=== PATIENT | female | born 1950 | race Caucasian/White ===

== ENCOUNTER 2017-10-10 06:25 | Day surgery (SDC) | payer MEDICARE, BC ==
[~2017-10-10 06:25] MED LIST: Buffered Lidocaine 0.9% SYRIN* 5 ML/SYR SYRINGE INTRADERM ONE; Metoclopramide TAB* 10 MG PO ONE
[2017-10-10] MEDS ORDERED: Buffered Lidocaine 0.9% SYRIN* 5 ML/SYR SYRINGE ONE (06:44)
[2017-10-10] MEDS ORDERED: ceFAZolin 2 GM PREMIX (*) 2 GM/50 ML BAG IVPB ONE (06:44)
[2017-10-10] MEDS ORDERED: Metoclopramide TAB* 10 MG ONE (06:44)
[2017-10-10] MEDS ORDERED: Lidocaine 1% INJ* 10 MG/ML 30 ML SDV ONE (07:06)
[2017-10-10] MEDS ORDERED: Ondansetron INJ* 2 MG/ML VIAL ONE (07:22)
[2017-10-10] MEDS ORDERED: KETAMINE HCL* 50 MG/ML 10 ML VIAL ONE (07:22)
[2017-10-10] MEDS ORDERED: Propofol* 10 MG/ML 20 ML BTL IV PUSH ONE (07:22)
[2017-10-10] MEDS ORDERED: Dexamethasone IV* 4 MG/ML 1 ML (4 MG) ONE (07:22)
[2017-10-10] MEDS ORDERED: fentaNYL* 50 MCG/ML 2 ML VIAL (100 MCG VIAL) ONE (07:22)
[2017-10-10] MEDS ORDERED: Ketorolac INJ* 30 MG/ML 1 ML VIAL ONE (07:22)
[2017-10-10] MEDS ORDERED: Lidocaine 2% PF * 5 ML VIAL ONE (07:22)
[2017-10-10] MEDS ORDERED: Midazolam* 1 MG/ML 10 ML VIAL (10 MG) ONE (07:22)
[2017-10-10] MEDS ORDERED: oxyCODONE/Acetamin 5/325 MG* TAB PO PRN (08:01)
[2017-10-10] MEDS ORDERED: fentaNYL* 50 MCG/ML 2 ML VIAL (100 MCG VIAL) IV PRN (08:01)
[2017-10-10] MEDS ORDERED: Naloxone* 0.4 MG/ML 1 ML VIAL IV PRN (08:01)
[2017-10-10] MEDS ORDERED: Ondansetron INJ* 2 MG/ML VIAL IV PRN (08:01)
--- NOTE | 2017-10-10 09:09 | BRIEFOPN ---
Brief Operative Note - Surgery Procedures: Procedures OPERATIVE REPORT PRE-OP: Metastatic lung cancer POST-OP: Same PROCEDURE: Insertion of left subclavian percutaneous 8F PowerPort with needle in SURGEON: MD Monica ANESTHESIA:Local with MAC Dr. Gaxiola ASST: none IVF:min EBL:min SPECIMEN: none DRAIN: none WOUND CLASS:One COMPLICATIONS: none TO PACU--Post procedural chest xray with catheter in good position with no pneumothorax.
--- NOTE | 2017-10-10 09:12 | RAD ---
HISTORY: Status post port placement COMPARISONS: PET CT dated September 29, 2012 VIEWS: 1: frontal portable view of the chest at 8:50 AM FINDINGS: LINES AND TUBES: A chest port is noted from left subclavian approach with the tip overlying the cavoatrial junction. CARDIOMEDIASTINAL SILHOUETTE: The cardiomediastinal silhouette is normal for portable technique. PLEURA: The costophrenic angles are sharp. No pleural abnormalities are noted. There is no appreciable pneumothorax. LUNG PARENCHYMA: Again noted is nodularity of the lateral right lung field with an ill-defined soft tissue density in the paramedian sella region of the right upper lung corresponding to the mass noted on previous CT. Accounting for differences in technique, this is stable. ABDOMEN: The upper abdomen is clear. There is no subphrenic gas. BONES AND SOFT TISSUES: No bone or soft tissue abnormalities are noted. IMPRESSION: 1. LINES AND TUBES ABOVE. 2. NO APPRECIABLE PNEUMOTHORAX. 3. STABLE RIGHT LUNG MASS OR NODULES
--- NOTE | 2017-10-10 09:29 | RAD ---
INDICATION: PowerPort placement. COMPARISON: No relevant prior exams available on the [facility] for comparison. TECHNIQUE: 66.7 seconds fluoroscopy. FINDINGS: Spot images document a LEFT side chest port with the tip at level of the RIGHT atrium. IMPRESSION: Procedural fluoroscopy. CPT II Codes: 6045F
[2017-10-10 10:10] VITALS: BP 139/60
--- NOTE | 2017-10-10 10:14 | RAD ---
HISTORY: Right calf swelling, lung cancer COMPARISONS: None relevant TECHNIQUE: Multiple transverse and longitudinal ultrasound images were obtained of the right lower extremity from the level of the common femoral vein inferiorly through to the infrapopliteal veins using grayscale, color Doppler, and spectral Doppler imaging with and without compression and with augmentation. Comparison images were obtained of the contralateral common femoral vein. FINDINGS: VEINS: There is occlusive thrombus noted within the right femoral vein, within the profunda femoris, within the right popliteal vein, and in the right posterior tibial and peroneal veins. The remainder of the venous system of the right lower extremity is compressible throughout its course, with normal flow on color Doppler imaging and normal response to augmentation on spectral Doppler imaging. SOFT TISSUES: Unremarkable. OTHER FINDINGS: None. IMPRESSION: EXTENSIVE OCCLUSIVE THROMBUS OF THE RIGHT LOWER EXTREMITY.
--- NOTE | 2017-10-11 18:26 | OP ---
CC: SAMANTHA Ross * DATE OF OPERATION: 10/10/17 - [facility] DATE OF : 54 SURGEON: Aadlid Anderson MD. OPERATIONS ENGINEER: None. ANESTHESIOLOGIST: Dr. Gaxiola. ANESTHESIA: Local, monitored anesthesia care. PRE-OP DIAGNOSIS: Metastatic lung cancer. POST-OP DIAGNOSIS: Metastatic lung cancer. OPERATIVE PROCEDURE: Insertion of an 8-Cypriot PowerPort percutaneously in the left subclavian vein, needle in. ESTIMATED BLOOD LOSS: Minimal. WOUND CLASSIFICATION: I. COMPLICATIONS: None. SPECIMENS: None. DESCRIPTION OF PROCEDURE: Written informed consent was obtained, the left chest was marked with indelible ink and preoperative antibiotics were administered. The left and right chest and neck were prepped and draped in the usual sterile fashion. Time-out verification was completed. An 1% lidocaine with epinephrine was infiltrated in the left infraclavicular area in the chest wall and the patient was placed in Trendelenburg position. An 18-gauge Cook needle was then used to puncture the subclavian vein with good blood return on the third pass under the clavicle. The guidewire was inserted without difficulty and confirmed to be into the superior vena cava by fluoroscopy. A transverse incision was made several centimeters below the puncture site and a subcutaneous pocket was made inferior to this incision, large enough to fit the ports. The catheter was then tunneled from the puncture site to the pocket site. After using the sheath dilator and peel-away system, the catheter was then inserted into the central venous system with the tip at the junction between the superior vena cava and the right atrium. It demi blood well and flushed without difficulty. The catheter at the skin level was then cut to the appropriate length and attached to the port. The port was placed within the tunnel and sutured into position with 2 separate 3-0 Prolene suture. Hemostasis was assured. The catheter was then flushed with saline and it withdrew blood well. It was then flushed with heparin solution and a right angle Michel needle was left in place for administration of chemotherapy today. The incisions were closed with 3-0 and 4-0 Polysorb suture. Steri-Strips and occlusive Tegaderm dressing were applied. The patient was taken to the recovery room in stable condition. Postprocedural chest x-ray showed the catheter to be in good position without evidence of pneumothorax. [id number]/[facility] #: [id number] MTDD
== END 2017-10-10 10:45 | disposition home or self-care (01) ==
LOC: OR 06:25
PROVIDERS: ATTEND Surgery
DX: C34.90 Malignant neoplasm of unspecified part of unspecified bronchus or lung (principal); C77.0 Secondary and unspecified malignant neoplasm of lymph nodes of head, face and neck; I82.C21 Chronic embolism and thrombosis of right internal jugular vein; E11.9 Type 2 diabetes mellitus without complications; Z79.84 Long term (current) use of oral hypoglycemic drugs; G93.49 Other encephalopathy; G47.33 Obstructive sleep apnea (adult) (pediatric); K21.9 Gastro-esophageal reflux disease without esophagitis; E78.5 Hyperlipidemia, unspecified
CPT/HCPCS: 71045; 76000; A9270-GY; C1788; J0690; J1100; J1642; J1885; J2250; J2405; J2704; J3010

== ENCOUNTER 2018-04-10 08:08 | Day surgery (SDC) | payer MEDICARE, BC ==
[~2018-04-10 08:08] MED LIST changes: -Metoclopramide TAB* 10 MG PO ONE
[2018-04-10] MEDS ORDERED: Midazolam* 1 MG/ML 2 ML VIAL (2 MG) ONE ×2 (10:24→10:27)
[2018-04-10 11:07] VITALS: BP 125/71
[2018-04-10] MEDS ORDERED: Ketorolac 0.5% OPHTH (NF) 0.5 % 5 ML BTL ONE (12:45)
[2018-04-10] MEDS ORDERED: Cyclopentolate 1% OPTH.SOL* 2 ML BTL ONE (12:45)
[2018-04-10] MEDS ORDERED: acetaZOLAMIDE TAB* 250 MG ONE (12:45)
[2018-04-10] MEDS ORDERED: Phenylephrine 2.5% OPTH.SOL* 2 ML BTL ONE (12:45)
[2018-04-10] MEDS ORDERED: Tetracaine 0.5% OPTH.SOL 4 ML* 1 DROP BTL ONE (12:45)
[2018-04-10] MEDS ORDERED: Neomycin/Polymy/Dex OPHTH.OIN* 3.5 GM ONE (12:45)
[2018-04-10] MEDS ORDERED: Tropicamide 1% OPTH.SOL* BTL ONE (12:45)
[2018-04-10] MEDS ORDERED: Lidocaine 1%* 5 ML VIAL ONE (12:45)
[2018-04-10] MEDS ORDERED: Povidone Iodine 5% OPTH* 30 ML BTL ONE (12:45)
--- NOTE | 2018-04-11 00:33 | OP ---
DATE OF OPERATION: 04/10/18 - [facility] DATE OF : 54 SURGEON: Efrain Byers MD ANESTHESIA: Monitored anesthesia care. PRE-OP DIAGNOSIS: Cataract, right eye. POST-OP DIAGNOSIS: Cataract, right eye. OPERATIVE PROCEDURE: Extracapsular cataract extraction of the right eye with intraocular lens implant. IMPLANTS: SN60WF 23.0 diopter lens to the right eye. COMPLICATIONS: None. DESCRIPTION OF PROCEDURE: The patient was given phenylephrine 2.5% and cyclopentolate 1% eye drops to the operative eye in the preoperative area. The patient was taken to the operating room where a time-out was taken to identify the correct patient, site, and side of surgery. The patient's right eye was prepped and draped in the usual sterile fashion with 5% Betadine. A second time -out was taken to verify the correct patient, site, and side of surgery, and correct lens implant. A lid speculum was placed to the right eye. A 1-mm paracentesis blade was used to make a clear corneal incision in the superotemporal position. Preservative free 1% lidocaine was injected into the anterior chamber. DisCoVisc was then injected into the anterior chamber. A 2.75 mm keratome blade was used to make a triplanar incision at the inferotemporal position. A cystotome initiated the capsulorrhexis which was completed with Utrata forceps in a continuous and curvilinear manner. Hydrodissection of the lens was performed with BSS on a cannula. The lens could be spun in a capsular bag. The phacoemulsification handpiece was used with a divide and conquer technique to remove to nucleus with 11.66 CDE. The I/ A handpiece was then removed with a residual cortical lens material. DisCoVisc was injected to inflate the capsular bag. The planned SN60WF 23.0 diopter lens was injected into the capsular bag. The residual DisCoVisc was removed from the eye with a I/A handpiece. The corneal incisions were hydrated and no leaks occurred at physiologic pressure around 20 mmHg per palpation. The lid speculum was removed and drapes removed. Maxitrol ointment was placed to the surface of the operative eye. An adhesive patch and shield were then placed on the operative eye. The patient was taken to the postoperative area in stable condition. [id number]/[facility] #: [id number] [facility]
== END 2018-04-10 11:15 | disposition home or self-care (01) ==
LOC: OREAST 08:08
PROVIDERS: ATTEND Student in an Organized Health Care Education/Training Program
DX: H25.11 Age-related nuclear cataract, right eye (principal); H43.813 Vitreous degeneration, bilateral; E11.9 Type 2 diabetes mellitus without complications; Z79.84 Long term (current) use of oral hypoglycemic drugs; G47.33 Obstructive sleep apnea (adult) (pediatric); E78.00 Pure hypercholesterolemia, unspecified; K21.9 Gastro-esophageal reflux disease without esophagitis; Z85.118 Personal history of other malignant neoplasm of bronchus and lung; Z86.718 Personal history of other venous thrombosis and embolism
CPT/HCPCS: A9270-GY; J2250; V2632

== ENCOUNTER 2018-05-01 07:22 | Day surgery (SDC) | payer MEDICARE, BC ==
[~2018-05-01 07:22] MED LIST changes: +Acetaminophen TAB* 325 MG PO PRN
[2018-05-01] MEDS ORDERED: Lidocaine 1%* 5 ML VIAL ONE (07:56)
[2018-05-01] MEDS ORDERED: Povidone Iodine 5% OPTH* 30 ML BTL ONE (07:56)
[2018-05-01] MEDS ORDERED: Neomycin/Polymy/Dex OPHTH.OIN* 3.5 GM ONE (07:56)
[2018-05-01] MEDS ORDERED: Phenylephrine 2.5% OPTH.SOL* 2 ML BTL ONE (07:56)
[2018-05-01] MEDS ORDERED: acetaZOLAMIDE TAB* 250 MG ONE (07:56)
[2018-05-01] MEDS ORDERED: Tetracaine 0.5% OPTH.SOL 4 ML* 1 DROP BTL ONE (07:56)
[2018-05-01] MEDS ORDERED: Ketorolac 0.5% OPHTH (NF) 0.5 % 5 ML BTL ONE (07:56)
[2018-05-01] MEDS ORDERED: Cyclopentolate 1% OPTH.SOL* 2 ML BTL ONE (07:56)
[2018-05-01] MEDS ORDERED: Tropicamide 1% OPTH.SOL* BTL ONE (07:56)
[2018-05-01] MEDS ORDERED: Midazolam* 1 MG/ML 2 ML VIAL (2 MG) ONE ×2 (09:19→09:26)
[2018-05-01 09:55] VITALS: BP 119/70
--- NOTE | 2018-05-01 22:00 | OP ---
OPERATIVE REPORT: DATE OF OPERATION: 05/01/18 - [facility] DATE OF : 54 SURGEON: Efrain Byers MD ANESTHESIA: Monitored anesthesia care. PRE-OP DIAGNOSIS: Cataract, left eye. POST-OP DIAGNOSIS: Cataract, left eye. OPERATIVE PROCEDURE: Extracapsular cataract extraction of the left eye with intraocular lens implant. IMPLANTS: SN60WF 23.0 diopter lens to the left eye. COMPLICATIONS: None. DESCRIPTION OF PROCEDURE: The patient was given phenylephrine 2.5% and cyclopentolate 1% eye drops to the operative eye in the preoperative area. The patient was taken to the operating room where a time-out was taken to identify the correct patient, site, and side of surgery. The patient's left eye was prepped and draped in the usual sterile fashion with 5% Betadine. A second time -out was taken to verify the correct patient, site, and side of surgery, and correct lens implant. A lid speculum was placed to the left eye. A 1-mm paracentesis was created at the inferotemporal position. Preservative free 1% lidocaine was injected into the anterior chamber followed by DisCoVisc. A 2.75 mm triplanar incision was created at the superotemporal position. A cystotome initiated the capsulorrhexis which was completed with Utrata forceps. Hydrodissection of the lens was performed with BSS on a cannula. The lens could be spun in a capsular bag. The phacoemulsification handpiece was used with a divide and conquer technique to remove the nucleus with 10.07 CDE. The I /A handpiece was then removed with a residual cortical lens material. DisCoVisc was injected to inflate the capsular bag. The planned SN60WF 23.0 diopter lens was injected into the capsular bag. The residual DisCoVisc was removed from the eye with the I/A handpiece. The corneal incisions were hydrated and no leaks occurred at physiologic pressure around 20 mmHg per palpation. The lid speculum was removed and drapes removed. Maxitrol ointment was placed to the surface of the operative eye. An adhesive patch and shield was then placed on the operative eye. The patient was taken to the postoperative area in stable condition. [id number]/[facility] #: [id number] [facility]ITAL[facility]
== END 2018-05-01 09:56 | disposition home or self-care (01) ==
LOC: OREAST 07:22
PROVIDERS: ATTEND Student in an Organized Health Care Education/Training Program
DX: H25.12 Age-related nuclear cataract, left eye (principal); H43.813 Vitreous degeneration, bilateral; E11.9 Type 2 diabetes mellitus without complications; Z79.84 Long term (current) use of oral hypoglycemic drugs; Z87.891 Personal history of nicotine dependence; E78.4 Other hyperlipidemia; E05.80 Other thyrotoxicosis without thyrotoxic crisis or storm; K21.9 Gastro-esophageal reflux disease without esophagitis; G47.33 Obstructive sleep apnea (adult) (pediatric); Z85.118 Personal history of other malignant neoplasm of bronchus and lung
CPT/HCPCS: A9270-GY; J2250; V2632